=== PATIENT | female | born 1995 | race Caucasian/White ===

== ENCOUNTER 2018-09-07 10:53 | Day surgery (SDC) | payer OTHER ==
[2018-09-07] MEDS ORDERED: LR 1,000 ML IV ONE (11:44)
[2018-09-07] MEDS ORDERED: SCOPOLAMINE HYDROBROMIDE 1 MG/3 DAYS PATCH TD ONE ×2 (11:48→11:49)
[2018-09-07] MEDS ORDERED: MIDAZOLAM 2 MG/2 ML VIAL IVP ONE (11:49)
--- NOTE | 2018-09-07 11:50 | PDANEPAE ---
ANE Past Medical History - Cardiovascular History Hx Hypertension: No Hx Arrhythmias: No Hx Chest Pain: No Hx Coronary Artery / Peripheral Vascular Disease: No Hx CHF / Valvular Disease: No Hx Palpitations: No - Pulmonary History Hx COPD: No Hx Asthma/Reactive Airway Disease: No Hx Recent Upper Respiratory Infection: No Hx Oxygen in Use at Home: No Hx Sleep Apnea: No Sleep Apnea Screening Result - Last Documented: Negative - Neurologic History Hx Cerebrovascular Accident: No Hx Seizures: No Hx Dementia: No - Endocrine History Hx Diabetes: No - Renal History Hx Renal Disorders: No - Liver History Hx Hepatic Disorders: No - Neurological & Psychiatric Hx Hx Neurological and Psychiatric Disorders: Yes Neurological / Psychiatric History Comment: depression. anxiety - Cancer History Hx Cancer: No - Congenital Disorder History Hx Congenital Disorders: No - GI History Hx Gastrointestinal Disorders: Yes Gastrointestinal History Comment: hx of constipation, no issues currently - Other Health History Other Health History: wears glasses/ contacts. eczema on inner arms near elbows and behind knees - Chronic Pain History Chronic Pain: No - Surgical History Prior Surgeries: 04.06.11 hymenectomy with [facility]. dental surgeries ANE Review of Systems Review of Systems: - Exercise capacity METS (RN): 4 METS ANE Patient History - Allergies Allergies/Adverse Reactions: Penicillins Allergy (Verified 09/07/18 11:20) Rash and hives Sulfa (Sulfonamide Antibiotics) Allergy (Verified 09/07/18 11:20) Rash and hives - Home Medications Home Medications: PRISTIQ HS 09/01/18 [Last Taken 09/06/18] - NPO status NPO Since - Liquids (Date): 09/06/18 NPO Since - Liquids (Time): 21:00 NPO Since - Solids (Date): 09/06/18 NPO Since - Solids (Time): 19:00 - Anes Hx Anes Hx: no prior problems - Smoking Hx Smoking Status: Former smoker - Family Anes Hx Family Anes Hx: none Family Hx Anesthesia Complications: none ANE Labs/Vital Signs - Vital Signs Vital Signs: reviewed preoperatively; see RN documention for details Blood Pressure: 131/83 Heart Rate: 83 Respiratory Rate: 16 O2 Sat (%): 97 Height: 165.1 cm Weight: 81.647 kg ANE Physical Exam - Airway Neck exam: FROM Mallampati Score: Class 1 Mouth exam: normal dental/mouth exam - ASA Status ASA Status: II ANE Anesthesia Plan Anesthesia Plan: general endotracheal anesthesia
[2018-09-07] MEDS ORDERED: fentaNYL 100 MCG/2 ML INJ ONE ×3 (11:56→13:50)
[2018-09-07] MEDS ORDERED: PROPOFOL/EMULSION 500 MG/50 ML BOTTLE IV ONE ×3 (11:56→13:18)
[2018-09-07] MEDS ORDERED: DEXAMETHASONE 10 MG/ML VIAL IVP ONE (12:18)
--- NOTE | 2018-09-07 12:18 | PDHPUP ---
History & Physical Update H&P update statement: This history and physical update is based on an assessment of the patient which was completed after admission or registration (within 24 hours), but prior to the surgery/procedure. H&P update: H&P reviewed & patient examined, no change in patient's condition since H&P completed
[2018-09-07] MEDS ORDERED: DIAZEPAM 5 MG/ML 1 ML SYR IVP PRN (13:08)
[2018-09-07] MEDS ORDERED: ONDANSETRON 4 MG/2 ML VIAL IVP PRN (13:08)
[2018-09-07] MEDS ORDERED: LR 500 ML IV PRN (13:08)
[2018-09-07] MEDS ORDERED: PHENYLEPHRINE HCL 100 MCG/ML SYR IVP PRN (13:08)
[2018-09-07] MEDS ORDERED: HYDROmorphONE/DILAUDID 2 MG/ML INJ IVP PRN (13:08)
[2018-09-07] MEDS ORDERED: ALBUTEROL 3 ML DEYVIAL IH PRN (13:08)
[2018-09-07] MEDS ORDERED: oxyCODONE IR 5 MG TAB PO PRN (13:08)
[2018-09-07] MEDS ORDERED: MEPERIDINE 25 MG/0.5 ML AMP IVP PRN (13:08)
[2018-09-07] MEDS ORDERED: HYDROCODONE/APAP 5/325 TAB PO PRN (13:08)
[2018-09-07] MEDS ORDERED: NALOXONE HCL 0.4 MG/ML INJ IVP PRN ×2 (13:08→13:50)
[2018-09-07] MEDS ORDERED: METOCLOPRAMIDE 10 MG/2 ML VIAL IVP PRN (13:08)
[2018-09-07] MEDS ORDERED: LABETALOL HCL 5 MG/ML 20 ML MDV IVP PRN (13:08)
[2018-09-07] MEDS ORDERED: DEXAMETHASONE 4 MG/ML VIAL IVP PRN (13:08)
[2018-09-07] MEDS ORDERED: PROMETHAZINE HCL 25 MG/ML INJ IVP PRN (13:08)
[2018-09-07] MEDS: fentaNYL 100 MCG/2 ML INJ IVP PRN ×3 (13:51→14:42)
--- NOTE | 2018-09-07 13:51 | POSTANESTH ---
Post Anesthetic Evaluation Cardiovascular Status: Normal, Stable Respiratory Status: Normal, Stable Level of Consciousness/Mental Status: Can Participate in Eval Pain Control: Adequate, Prn Tx Ordered Nausea/Vomiting Control: Adequate, Prn Tx Ordered Complications Possibly Related to Anesthesia: None Noted
--- NOTE | 2018-09-07 13:57 | GOP ---
DATE OF OPERATION: 09/07/2018 SURGEON: Elizabeth Villanueva MD ANESTHESIA: General. PREOPERATIVE DIAGNOSIS: 1. Recurrent acute tonsillitis. 2. Snoring. POSTOPERATIVE DIAGNOSIS: 1. Recurrent acute tonsillitis. 2. Snoring. PROCEDURE PERFORMED: Bilateral tonsillectomy over 12. FINDINGS: The patient was found to have 2+ tonsils, but a fairly narrow oropharynx. Some sutures we re placed between the anterior and posterior pillars on both sides to create a little bit more space. ESTIMATED BLOOD LOSS: Minimal. INDICATIONS: This patient is a very pleasant 23-year-old girl who has history of recurrent tonsillit is and chronic sore throats. She also has some snoring or restless sleep. She has never had a sleep study. She was noted to have somewhat enlarged tonsils on exam, but we did elect to proceed with a tonsillectomy secondary to recurrent tonsillitis. She understands that she may continue to have snor ing and have to see the sleep clinic in the future. DESCRIPTION OF PROCEDURE: Patient was first seen in the preoperative area where informed consent was obtained. She was then brought back to the operating room where Anesthesia sedated and intubated he r. The bed was turned 90 degrees. Shoulder roll was placed. She was prepped and draped in normal f ashion. I initially did a universal time-out protocol, and we confirmed the patient and procedure. Once this had been confirmed, the Oliver-Jesus mouth gag was placed in her oral cavity and then retrac jasper and suspended, giving good visualization of the oropharynx. She was noted to have the 2+ tonsils that were very cryptic and somewhat friable. A red rubber catheter was placed through the right sterling is and brought out through the oral cavity. Once this was done, the right tonsil was grasped with a curved Allis clamp, and electrocautery on a low setting was used to remove the tonsil as a whole, farzad ing care to stay medial to the musculature. Any small bleeding vessels were cauterized using bipolar cautery. The right tonsil was sent off the field for permanent pathology. We then did the exact sa me thing with the left side, removing the tonsil, using bipolar cautery for any hemostatic needs. I then used an adenoid mirror to evaluate the adenoid bed. She had no significant adenoid tissue, so t his was not done. At this point in time, the mouth gag was then retracted and suspended to release a ny pressure on the tongue. This had been done a couple times throughout the procedure also. I then resuspended after about 30 seconds. There was no significant active bleeding. Secondary to the fair ly narrow oropharynx as well as fairly wide tonsillar fossa, I did place 2 sutures between the anteri or and posterior pillar on both sides with a 3-0 Vicryl. Once this was done, she had significantly m ore patency of the oropharynx. At this point, an OG suction was used to suction out the stomach and the pharynx. This was then removed as well as the other instruments. At this point, all counts were correct. She was turned back over to Anesthesia where she was awakened, extubated, and taken to PAC U in stable condition. There were no complications, and she tolerated the procedure well. COMPLICATIONS: None. /[id number]/MODL
[2018-09-07] MEDS ORDERED: oxyCODONE IR 5 MG TAB ONE (14:29)
[2018-09-07 18:02] VITALS: BP 124/64
== END 2018-09-07 17:48 | disposition home or self-care (01) ==
LOC: FSGY 10:53
PROVIDERS: ATTEND Otolaryngology
PROC: 0CTPXZZ Resection of Tonsils, External Approach (ICD-10-PCS; principal; 2018-09-07 12:30)
DX: J03.91 Acute recurrent tonsillitis, unspecified (principal); R06.83 Snoring; F41.8 Other specified anxiety disorders
CPT/HCPCS: J1100; J2250; J2704; J3010